=== PATIENT | male | born 1955 | race Caucasian/White ===

== ENCOUNTER 2016-09-19 08:06 | Day surgery (SDC) | payer OTHER ==
[2016-09-16 12:06] VITALS: Ht 172.7 cm; Wt 92.0 kg
[2016-09-19] VITALS (11 sets, daily range): BP systolic 127–154; BP diastolic 72–96; PULSE 62–85; RESP 14–24
[~2016-09-19] VITALS: Ht 172.7 cm; Wt 92.0 kg
[~2016-09-19 08:06] MED LIST: BUPIVACAINE 0.25% (MPF) 30 ML INJ INJ ONE; BUPIVACAINE 0.25% (MPF) 30 ML INJ ONE; POLYMYXIN/BACITRACIN 1L IRRIG IRR ONE
[2016-09-19] MEDS ORDERED: ATOR10TA65 PO (09:13)
[2016-09-19] MEDS ORDERED: TAMS0.4C2 PO (09:13)
[2016-09-19] MEDS ORDERED: SOD CHLORIDE 0.9% 1,000 ML IV ONE (09:30)
[2016-09-19] MEDS ORDERED: CEFAZOLIN 2 GM/50 ML (PMX) 50 ML IVPB ONE (09:30)
--- NOTE | 2016-09-19 09:54 | RADRPT ---
PROCEDURE: Chest Radiograph. CLINICAL INDICATION: Preop TECHNIQUE: Single frontal chest radiograph. COMPARISON: None available FINDINGS: The heart is magnified. Atherosclerotic calcifications are present. There is mild left basilar ate lectasis or scarring No infiltrate or effusion is seen. The bones are intact. IMPRESSION: 1. No evidence of acute cardiopulmonary disease. 2. Mild left basilar atelectasis and/or scarring. 3. Atherosclerotic vascular disease. RPTAT: KK .Evan Lora MD, MD Date Time Electronically viewed and signed by .Evan Lora MD, on 09/19/2016 09:54 .B/
[2016-09-19] MEDS ORDERED: MEPERIDINE 100 MG INJ ONE (11:03)
[2016-09-19] MEDS ORDERED: GLYCOPYRROLATE 0.4 MG INJ ONE ×2 (11:03→11:10)
[2016-09-19] MEDS ORDERED: ROCURONIUM 50 MG INJ ONE (11:03)
[2016-09-19] MEDS ORDERED: SUCCINYLCHOLINE CHLORIDE 100 MG/5 ML SYG IV ONE (11:03)
[2016-09-19] MEDS ORDERED: LIDOCAINE 2% (SDV) 5 ML INJ ONE (11:03)
[2016-09-19] MEDS ORDERED: PROPOFOL 20 ML ONE (11:03)
[2016-09-19] MEDS ORDERED: NEOSTIGMINE 3 MG/3 ML SYRINGE ONE ×2 (11:03→11:09)
[2016-09-19] MEDS ORDERED: CEFAZOLIN 1 GM INJ ONE (11:09)
[2016-09-19] MEDS ORDERED: ONDANSETRON 4 MG INJ ONE (11:09)
[2016-09-19] MEDS ORDERED: ATROPINE 1 MG/10 ML SYRINGE ONE (12:01)
[2016-09-19] MEDS ORDERED: HYDROmorphONE (0.2 MG/ML) 10ML SYG IV ONE (12:25)
[2016-09-19] MEDS: HYDROmorphONE (0.2 MG/ML) 10ML SYG IV PRN ×2 (12:28→12:33)
[2016-09-19] MEDS ORDERED: HYDROCODONE/APAP (5/325) TAB PO ONE (12:30)
[2016-09-19] MEDS ORDERED: EPHEDrine SULFATE 50 MG/5 ML SYG IV PRN (12:30)
[2016-09-19] MEDS ORDERED: hydrALAzine 20 MG INJ IV PRN (12:30)
[2016-09-19] MEDS ORDERED: METOCLOPRAMIDE 10 MG INJ IV PRN (12:30)
[2016-09-19] MEDS ORDERED: MEPERIDINE 25 MG INJ IV PRN (12:30)
[2016-09-19] MEDS ORDERED: HYDROmorphONE (0.2 MG/ML) 10ML SYG IV PRN (12:30)
[2016-09-19] MEDS ORDERED: MIDAZOLAM 1 MG/ML 2 ML INJ IV PRN (12:30)
[2016-09-19] MEDS ORDERED: FENTAnyl 50 MCG/ML VIAL IV PRN ×2 (12:30)
[2016-09-19] MEDS ORDERED: LABETALOL HCL 20MG INJ IV PRN (12:30)
[2016-09-19] MEDS ORDERED: ONDANSETRON 4 MG INJ IV PRN (12:30)
[2016-09-19] MEDS ORDERED: morphine (1 MG/ML) 10ML SYRINGE IV PRN ×2 (12:30)
[2016-09-19] MEDS ORDERED: DIPHENHYDRAMINE 50 MG INJ IV PRN (12:30)
--- NOTE | 2016-09-19 12:44 | OPR ---
DATE OF OPERATION: 09/19/2016 INDICATION: This is a 60-year-old male with incarcerated ventral hernia. He requests surgical repa ir. Risks, alternatives, benefits, and personnel were discussed with the patient. Patient expresse d understanding and consents to the operation. PREOPERATIVE DIAGNOSIS: Ventral hernia. POSTOPERATIVE DIAGNOSIS: Incarcerated ventral hernia. OPERATION PERFORMED: Laparoscopic incarcerated ventral hernia repair with 10 x [address] mesh. SURGEON: Julio Bledsoe MD MOLD INSERT CHANGER: Broderick Chi MD SPECIMENS: None. COMPLICATIONS: None. ANESTHESIA: General. PROCEDURE: The patient was taken to the OR and prepped and draped in the usual sterile fashion. Cruz rgical timeout was performed. IV antibiotics were given. Left upper quadrant 5 mm transverse incis ion is made with a 15 blade. Using a 5 mm optical trocar, optical entry was performed. Pneumoperit oneum was established. Left flank 12 mm optical trocar and left lower quadrant 5 mm optical trocars are placed under direct visualization. Upon initial inspection, there was incarcerated fat content into the ventral hernia. This was reduced laparoscopically and excised using laparoscopic Harmonic maryellen. The hernia defect was identified and closed primarily with interrupted #1 Prolene. There was good hemostasis. Underlay mesh is secured in place with SecureStrap with approximately 4 to 5 c m of coverage in all directions. There was good hemostasis. Ports were removed under direct visual ization. Skin was closed using skin cait. Local anesthesia was injected. Dry dressing was appl ied. Dictated By: JULIO BLEDSOE MD SB/NTS Conf#: [id number] DID#: [id number] CC: BRODERICK CHI MD;*EndCC*
--- NOTE | 2016-09-22 11:42 | RADRPT ---
Vent Rate: 55 bpm RR Interval: 0 msec [place] Interval: 178 msec QRS Duration: 86 msec QT Interval: 410 msec QTC Interval: 392 msec P-R-T [place]: 49 - 71 - 69 degrees Sinus bradycardia Otherwise normal ECG Electronically Signed By: Vishal George [id number]
== END 2016-09-19 20:00 | disposition home or self-care (01) ==
LOC: SDS 08:06
PROVIDERS: ATTEND Surgery
DX: K43.6 Other and unspecified ventral hernia with obstruction, without gangrene (principal); E78.5 Hyperlipidemia, unspecified
CPT/HCPCS: 49653; 71010; 93005; C1781; J0330; J0461; J0690; J1170; J2175; J2405; Z7512; Z7610; J2710